=== PATIENT | female | born 1975 | race Caucasian/White ===

== ENCOUNTER → 2016-07-27 | Outpatient (CLI) | payer BC ==
[~2016-07-27] MED LIST: BCPILLS PO; BIOT1CAP8 PO; CARB0.5D28 OPB; CHOL1000 PO; IBUP-1050 PO; TAMO20TA47 PO; [UNRECOGNIZED DRUG - REMARK]
== END | disposition home or self-care (01) ==
LOC: C.PATH 08:52
PROVIDERS: ATTEND Obstetrics & Gynecology
DX: N63 Unspecified lump in breast (principal); N60.82 Other benign mammary dysplasias of left breast

== ENCOUNTER → 2016-08-03 | Outpatient (CLI) | payer BC ==
--- NOTE | 2016-08-03 11:36 | DIAGNOSTIC IMAGING REPORT ---
RIGHT BREAST LYMPHOSCINTIGRAPHY CLINICAL HISTORY: Right breast cancer. COMPARISON STUDY: Screening mammogram February 25, 2016. PROCEDURE: Right breast lymphoscintigraphy was performed. The procedure was discussed with the patient and informed consent was obtained. The procedure was performed by Dr. Mccall following a timeout. A total of 0.544 mCi of Lymphoseek was injected in 5 intradermal aliquots within the upper inner quadrant of the right breast as ordered. The patient tolerated the procedure well and no immediate complications were evident. No imaging was requested at this time. IMPRESSION: Right breast lymphoscintigraphy as described above. Electronically signed by: Alfonso Mccall M.D. 08/03/2016 11:34 AM Dictated Date/Time: 08/03/2016 11:26 AM
== END | disposition home or self-care (01) ==
LOC: C.NUCL 08:29
PROVIDERS: ATTEND Surgery
DX: C50.911 Malignant neoplasm of unspecified site of right female breast (principal)

== ENCOUNTER → 2017-01-10 | Outpatient (CLI) | payer BC ==
[~2017-01-10] MED LIST changes: -BCPILLS PO; -[UNRECOGNIZED DRUG - REMARK]
[2017-01-10 14:46] VITALS: BP 113/78; PULSE 67; TEMP 36.8; O2SAT 95
--- NOTE | 2017-01-10 17:14 | Radiation Oncology Follow-Up ---
Radiation Oncology Follow-Up Date of Visit Jan 10, 2017. Reason For Visit One-month follow-up and cancer survivorship care plan Radiation Completion Date 12/06/16 Diagnosis (1) Breast cancer Status: Acute Onset Date: 08/03/2016 Histology Subtype: microinvasive and invasive mammary carcinoma Stage: l Permanent Comment: Family history of breast cancer BRCA testing negative Self detected right breast mass Status post FNA 07/27/2016 revealing atypical ductal proliferation Status post partial mastectomy and sentinel lymph node biopsy 08/03/2016 Lesion #1 microinvasive mammary carcinoma grade 1, estrogen receptor positive, progesterone receptor positive, HER-2/lizzie negative Lesion #2 invasive mammary carcinoma of no specific type(ductal, not otherwise specified) grade 2 Estrogen receptor positive, progesterone receptor positive, HER-2/lizzie negative Stage pT1c pN0M0 Status post reexcision with negative margin 09/07/2016 Oncotype DX score of 10 Status post completion of radiation therapy 12/06/2016. Received 6640 cGy. Last Edited By: Jennyfer Hung on Dec 12, 2016 09:31 History of Present Illness Ms. Sandra is a 40-year-old female with no family history of breast cancer. She underwent a bilateral digital screening mammogram on 02/25/2016. This was compared to previous procedures dating back to 2010. There were no mammographic evidence of malignancy and a one-year screening mammogram was recommended. The patient self detected a nodule in the upper inner quadrant of the right breast. She was seen by Dr. Martines confirmed a palpable abnormality he ordered a fine-needle aspiration of the palpable abnormality. This was performed on 07/27/2016. Evaluation of the aspirated materials revealed abundant epithelial cellularity. This was felt to be consistent with an atypical ductal proliferation. The differential included an atypical proliferative lesion of fibrocystic change, DCIS and invasive carcinoma. Case: [id number]. Patient was seen by Dr. Mckeon for evaluation and discussion of diagnostic and treatment options. A targeted ultrasound was performed on 07/31/2016. This revealed a hypoechoic vascular mass with indistinct margins measuring 0.7 x 0.6 x 0.8 mm. After discussion of options the patient opted to proceed with a partial mastectomy and sentinel node biopsy. This was performed on 2016. This revealed a single benign lymph node with no evidence of metastatic carcinoma on routine stains or by immunohistochemistry to cytokeratin. The partial mastectomy specimen confirmed ductal carcinoma in situ, intermediate grade without necrosis with a focus of microinvasive carcinoma. There was no obvious gross mass seen but the deep margin showed a small focus. The appearance of this was different than that seen on the prior aspiration biopsy. However an additional inferior medial margin was taken. This showed evidence of an infiltrating ductal carcinoma grade 2 of 3 along with additional DCIS, intermediate grade without necrosis. The invasive carcinoma was present at the inked margin. DCIS margin was negative with the closest margin and inferior margin at 0.4 cm. Estrogen receptors were positive (90%, strong). Progesterone receptors were positive (80%, strong). HER-2/lizzie was negative by immunohistochemistry and confirmed negative by FISH analysis. There was no lymphovascular space invasion and no perineural invasion identified. There were 2 separate primary tumors appreciated. Case: [id number]. Patient went on to have a reexcision of the margins on 09/08/2016. The reexcision tissue showed benign breast tissue. The en face margins were negative for DCIS and for invasive carcinoma. Case: [id number]. The final AJCC pathologic staging was therefore pT1c pN0(sn-), ER positive, NE positive and HER -2/lizzie negative. Patient was seen by Dr. Thornton. Given her age Dr. Mckeon had ordered genetic testing which revealed BRCA negativity. Dr. Rui Moreno ordered Oncotype DX test that came back with a recurrent score of 10 facing her in the middle of the low risk category. Based on these findings he did not recommend systemic chemotherapy. He did recommended adjuvant hormonal therapy following the completion of her radiation. She underwent radiation therapy. This was completed 12/06/2016. She received 6640 cGy. Interim History She's been doing well over the past month. The skin irritation that occurred toward the end of treatment steadily improved. There was some peeling of the skin. The darker discoloration is steadily improving. She denies any pain. She's noted no masses. There is no change of the axilla. She has been using [id number] skin preparation to help prevent scarring. She denies any nipple pain or discharge. She has seen Dr. Mckeon and follow-up. He scheduled her for recheck mammography. She is also seen Dr. Thornton and is now on tamoxifen. She had a side effect of filling a shiver this resolved. She denies hot flashes. She had issues with itching of the skin and this has steadily improved. Allergies Coded Allergies: No Known Allergies (Verified Allergy, Unknown, ?, 09/28/08) Home Medications Scheduled Biotin (Biotin), 1 CAP PO DAILY Cholecalciferol (Vitamin D3), 1 TAB PO DAILY Tamoxifen (Nolvadex), 20 MG PO DAILY Scheduled PRN Carboxymethylcellulose Sodium (Refresh Tears), 1 DROP OPB DAILY PRN for UNDECIDED Review of Systems Gastrointestinal: Symptoms: WNL Oral: Symptoms: No Problems Respiratory: Symptoms: WNL Urinary: Symptoms: WNL Skin: Symptoms: No Problems Other Skin Symptoms: Skin tender to the touch at times (above scar) Breast: Right Upper Arm Measurement: 24.2 Right Mid Arm Measurement: 22.0 Right Wrist Measurement: 15.1 Left Upper Arm Measurement: 24.4 Left Mid Arm Measurement: 21.4 Left Wrist Measurement: 14.2 Arm Dominence: Right Physical Exam Vital Signs Date Time Temp Pulse Resp B/P (MAP) Pulse Ox O2 Delivery O2 Flow Rate FiO2 01/10/17 14:46 36.8 67 16 113/78 95 Fatigue: None General Appearance: no apparent distress Eyes: normal inspection, EOMI ENT: normal ENT inspection, hearing grossly normal Neck: no adenopathy, thyroid normal Respiratory/Chest: lungs clear, no respiratory distress, no accessory muscle use Breast: Breast examination reveals well-healed incisions of the right breast. There are no masses or tenderness and no lymphadenopathy. Mild fibrous changes in the area of the incision. She has no skin retractions. There is slight swelling of the nipple. There is very mild hyperpigmentation. There is no sign of keloid. Using the Weston score cosmesis she has a good outcome. The left breast showed no masses or tenderness and no axillary adenopathy. Cardiovascular: regular rate, rhythm, no gallop, no murmur Extremities: no pedal edema Neurologic/Psychiatric: no motor/sensory deficits, alert, normal mood/affect Skin: warm/dry Laboratory Studies Test 11/15/16 09:44 01/10/17 15:42 White Blood Count 6.40 K/uL (4.8-10.8) 8.18 K/uL (4.8-10.8) Red Blood Count 4.52 M/uL (4.2-5.4) 4.53 M/uL (4.2-5.4) Hemoglobin 14.9 g/dL (12.0-16.0) 14.3 g/dL (12.0-16.0) Hematocrit 43.6 % (37-47) 42.5 % (37-47) Mean Corpuscular Volume 96.5 fL (80-100) 93.8 fL (80-100) Mean Corpuscular Hemoglobin 33.0 pg (25-34) 31.6 pg (25-34) Mean Corpuscular Hemoglobin Concent 34.2 g/dl (32-36) 33.6 g/dl (32-36) Platelet Count 229 K/uL (130-400) 249 K/uL (130-400) Mean Platelet Volume 9.7 fL (7.4-10.4) 9.2 fL (7.4-10.4) Neutrophils (%) (Auto) 55.3 % 59.5 % Lymphocytes (%) (Auto) 27.0 % 26.7 % Monocytes (%) (Auto) 15.6 % 12.3 % Eosinophils (%) (Auto) 1.6 % 1.2 % Basophils (%) (Auto) 0.3 % 0.2 % Neutrophils # (Auto) 3.54 K/uL (1.4-6.5) 4.86 K/uL (1.4-6.5) Lymphocytes # (Auto) 1.73 K/uL (1.2-3.4) 2.18 K/uL (1.2-3.4) Monocytes # (Auto) 1.00 K/uL (0.11-0.59) 1.01 K/uL (0.11-0.59) Eosinophils # (Auto) 0.10 K/uL (0-0.5) 0.10 K/uL (0-0.5) Basophils # (Auto) 0.02 K/uL (0-0.2) 0.02 K/uL (0-0.2) RDW Standard Deviation 43.0 fL (36.4-46.3) 41.4 fL (36.4-46.3) RDW Coefficient of Variation 12.2 % (11.5-14.5) 12.2 % (11.5-14.5) Immature Granulocyte % (Auto) 0.2 % 0.1 % Immature Granulocyte # (Auto) 0.01 K/uL (0.00-0.02) 0.01 K/uL (0.00-0.02) Sodium Level 141 mmol/L (136-145) 142 mmol/L (136-145) Potassium Level 3.9 mmol/L (3.5-5.1) 3.7 mmol/L (3.5-5.1) Chloride Level 107 mmol/L (98-107) 108 mmol/L (98-107) Carbon Dioxide Level 26 mmol/L (21-32) 27 mmol/L (21-32) Anion Gap 8.0 mmol/L (3-11) 7.0 mmol/L (3-11) Blood Urea Nitrogen 15 mg/dl (7-18) 16 mg/dl (7-18) Creatinine 0.93 mg/dl (0.60-1.20) 0.91 mg/dl (0.60-1.20) Estimated GFR () 87.9 90.2 Estimated GFR (Non- 75.8 77.8 BUN/Creatinine Ratio 15.9 (10-20) 17.9 (10-20) Random Glucose 78 mg/dl (70-99) 94 mg/dl (70-99) Calcium Level 9.2 mg/dl (8.5-10.1) 9.0 mg/dl (8.5-10.1) Total Bilirubin 0.9 mg/dl (0.2-1) 0.4 mg/dl (0.2-1) Aspartate Amino Transferase (AST) 14 U/L (15-37) 15 U/L (15-37) Alanine Aminotransferase (ALT) 27 U/L (12-78) 27 U/L (12-78) Alkaline Phosphatase 57 U/L (45-117) 54 U/L (45-117) Lactate Dehydrogenase 129 U/L (84-246) 139 U/L (84-246) Total Protein 7.0 gm/dl (6.4-8.2) 6.9 gm/dl (6.4-8.2) Albumin 3.9 gm/dl (3.4-5.0) 3.9 gm/dl (3.4-5.0) Globulin 3.1 gm/dl (2.5-4.0) 3.0 gm/dl (2.5-4.0) Albumin/Globulin Ratio 1.3 (0.9-2) 1.3 (0.9-2) Assessment & Plan Plan: Continue with scheduled mammography. Continue follow-up with Dr. Mckeon , Dr. Thornton, and her primary care physician. I discussed general solid she to the area of fibrous change in the region of the incision. She'll continue the tamoxifen. Today we completed a cancer survivorship care plan. A copy the document was given to the patient. We asked her to return to our office in 6 months. She may call if she has a questions or concerns in the interim. Total Time In Follow-Up I spent 20 minutes speaking to the patient and performing examination. I spent 20 minutes reviewing information, preparing the survivorship document, and completing this note. Copy To Long Mckeon M.D.; Joe Thornton MD; Janak Lira M.D.; Gayle Ramos M.D. Problem Qualifiers (1) Breast cancer: Breast location: upper inner quadrant of breast Estrogen receptor status: positive Patient sex: female Laterality: right Qualified Codes: C50.211 - Malignant neoplasm of upper-inner quadrant of right female breast; Z17.0 - Estrogen receptor positive status [ER+]
== END | disposition home or self-care (01) ==
LOC: C.ONC 14:40
PROVIDERS: ATTEND Physician Assistant Medical
DX: Z08 Encounter for follow-up examination after completed treatment for malignant neoplasm (principal); Z92.3 Personal history of irradiation; Z85.3 Personal history of malignant neoplasm of breast

== ENCOUNTER → 2017-03-13 | Outpatient (CLI) | payer BC ==
[~2017-03-13] MED LIST changes: -IBUP-1050 PO
--- NOTE | 2017-03-13 13:03 | MAMMOGRAPHY REPORT ---
BILATERAL DIGITAL DIAGNOSTIC MAMMOGRAM TOMOSYNTHESIS WITH CAD: 03/13/2017 CLINICAL HISTORY: 41-year-old woman with a personal history of right breast cancer status post breast conservation treatment. After negative mammogram last February, she felt a lump in her right breas t in June 2016. This was biopsied with fine-needle aspiration based on palpation and yielded atyp ical cells. Surgical excision yielded microinvasive mammary carcinoma and DCIS. Additional tissue y ielded negative margins. Patient presents for first follow-up after treatment. TECHNIQUE: Bilateral breast tomosynthesis in addition to standard 2D mammography was performed. Spot magnification right CC and ML views were also obtained. Current study was also evaluated with a Telepo Aided Detection (CAD) system. COMPARISON: Comparison is made to exams dated: 02/25/2016 mammogram, 02/17/2015 mammogram, 10/01/2012 ult rasound, 10/01/2012 mammogram, and 04/25/2011 ultrasound - [facility]. BREAST COMPOSITION: The tissue of both breasts is extremely dense, which lowers the sensitivity of m ammography. FINDINGS: A linear scar marker overlies the anterior right breast. There is a single surgical clip a nd expected architectural distortion deep to the scar marker, denoting the surgical bed. There are s cattered stable round and punctate microcalcifications in the left breast, and a few identified withi n the right breast. No suspicious grouping or cluster is seen bilaterally. No unexpected architectu ral distortion, obvious new mass or asymmetry. IMPRESSION: ACR-BI-RADS CATEGORY 3: PROBABLY BENIGN There are expected post treatment changes in the right breast, without definite mammographic evidence of malignancy bilaterally. Recommend another close follow-up diagnostic mammogram and possible ultr asound of the right breast in 6 months to ensure stability after treatment. Recommend routine mammog ysabel of the left breast at 1 year. 2. Given that the patient's breast cancer was mammographically occult, would also recommend addition al surveillance with breast MRI. These results and recommendations were discussed with the patient at the time of the exam. She tenta tively scheduled her breast MRI and follow-up evaluation of the right breast prior to leaving the [facility]. Approximately 10% of breast cancers are not detected with mammography. A negative mammographic report should not delay biopsy if a clinically suggestive mass is present. Starla Best M.D. ay/:03/13/2017 12:55:00 Decision Unit Rn: Jolynn ORELLANA)([place]), [facility] letter sent: Follow Up Recommended 3 BI-RADS Code: ACR-BI-RADS Category 3: Probably Benign
== END | disposition home or self-care (01) ==
LOC: C.MAMM 09:05
PROVIDERS: ATTEND Surgery
DX: Z85.3 Personal history of malignant neoplasm of breast (principal); Z08 Encounter for follow-up examination after completed treatment for malignant neoplasm

== ENCOUNTER → 2017-03-20 | Outpatient (CLI) | payer BC | END | disposition home or self-care (01) | LOC: C.PAPS 14:07 | PROVIDERS: ATTEND Obstetrics & Gynecology | DX: Z01.419 Encounter for gynecological examination (general) (routine) without abnormal findings (principal) ==

== ENCOUNTER → 2017-03-30 | Outpatient (CLI) | payer BC ==
[~2017-03-30] MED LIST changes: +GADAVIST IV PRN
--- NOTE | 2017-04-02 08:01 | MAMMOGRAPHY REPORT ---
BREAST MRI OF BOTH BREASTS : 03/30/2017 CLINICAL HISTORY: Screening breast MRI. History of right breast cancer status post lumpectomy. COMPARISON: Comparison is made to exams dated: 03/13/2017 mammogram, 02/25/2016 mammogram, 02/17/2015 ma mmogram, 10/01/2012 ultrasound, 10/01/2012 mammogram, and 04/25/2011 ultrasound - [facility] nt. Technique: The patient was placed prone in a dedicated breast imaging coil. Precontrast axial T1-rey ghted, axial T2-weighted fat saturation, and axial T1-weighted fat saturation images were obtained. After the administration of 5.5 mL of Gadavist IV contrast, sequential T1-weighted fat saturation fidel ges were obtained. Subtraction images were obtained of the dynamic contrast enhanced sequences, and 3-D reformations were performed. The Sosh software was used for kinetic analysis. Findings: Right breast: There is mild background parenchymal enhancement. There are expected post surgical ania nges in the right medial breast from prior lumpectomy. There are no suspicious enhancing masses or a reas of abnormal non-mass enhancement within the right breast. Left breast: There is mild background parenchymal enhancement. There is an oval circumscribed enhanc ing 7 mm mass within the left 2:00 breast posteriorly, which demonstrates corresponding T2 hyperinten sity and has two central nonenhancing portions as well as predominantly persistent kinetics (series 5 01 image 50, series 6 image 23). Recommend second look ultrasound for further evaluation; this may r epresent a fibroadenoma or possibly a cyst cluster. Additionally, there is a small 3 mm focus of enh ancement in the left 12:00 posterior breast, which demonstrates a predominantly persistent kinetic pa ttern and may represent normal background parenchymal enhancement although second look ultrasound is recommended (series 501 image 47 and series 6 image 31). The remainder of the left breast demonstrat es no suspicious enhancing masses or areas of abnormal non-mass enhancement. There is no evidence of axillary adenopathy. The chest wall structures are negative. Extramammary s oft tissues are unremarkable. IMPRESSION: ACR BI-RADS CATEGORY 0: INCOMPLETE EVALUATION: NEED ADDITIONAL IMAGING EVALUATION 1. Circumscribed enhancing 7 mm mass in the left 2:00 breast posteriorly, which may represent a fibr oadenoma or cyst cluster although second look ultrasound is recommended for further evaluation. If a corresponding suspicious abnormality is seen on ultrasound, then ultrasound-guided biopsy could be p erformed at that time (45 minute time slot). 2. Small 3 mm enhancing focus in the left 12:00 posterior breast, which may represent normal backgro und parenchymal enhancement although second look ultrasound is recommended. 3. Expected postsurgical changes in the right breast from prior lumpectomy, without MRI evidence of malignancy. Valeria Davis M.D. ah/:03/31/2017 16:45:05 Commercial Development Manager: [employer], [facility] letter sent: Addl Imaging 0 BI-RADS Code: ACR BI-RADS Category 0: Incomplete Evaluation: Need Additional Imaging Evaluation
== END | disposition home or self-care (01) ==
LOC: C.MRI 14:04
PROVIDERS: ATTEND Surgery
DX: C50.211 Malignant neoplasm of upper-inner quadrant of right female breast (principal); N63.0 Unspecified lump in unspecified breast; R92.8 Other abnormal and inconclusive findings on diagnostic imaging of breast; Z98.890 Other specified postprocedural states

== ENCOUNTER → 2017-04-11 | Outpatient (CLI) | payer BC ==
[~2017-04-11] MED LIST changes: -GADAVIST IV PRN
--- NOTE | 2017-04-11 08:47 | Discharge Instructions ---
Discharge Instructions Procedure Procedure Date: Apr 11, 2017. Reason for visit: Left Mass 2ND Look Us--Possible Bx. Discharge Discharge Date: Apr 11, 2017. Discharge Diagnosis: post left breast ultrasound guided core biopsy Instructions Activity Recommendations: Additional Limitations (see below) Return to School/Work: no limitations Recommended Home Diet: No Limitations Provider Instructions: ACTIVITY RECOMMENDATIONS: * No lifting, pushing, pulling or exercising the affected side for three days. RETURN TO SCHOOL/WORK: * You may return to work/school after the procedure, but do not perform any strenuous activities for 24 to 48 hours. MEDICATIONS: * Tylenol (two 325 mg) every four to six hours if needed for mild pain (if not allergic to Tylenol). DIET: * Resume previous diet. SPECIAL CARE INSTRUCTIONS: * Keep biopsy site dry for 24 hours. May shower after 24 hours, but do not soak (bathe) incision. * May remove Tegaderm (plastic patch) tomorrow AFTER showering. * Leave the steri-strips on for one week. Allow the steri-strips to fall off by themselves. If not off after one week, you may remove them. You may place a Bandaid crosswise over the strips, if desired. * Apply ice 10 minutes on and 10 minutes off as needed. * Wear a bra at bedtime to sleep more comfortably for 2-3 days. * Your referring physician should have the results after approximately 5 to 7 business days. * Call for unusual bleeding, fever, drainage, etc or if you have any questions call [phone] during normal business hours or after hours call Dr Best, . FOLLOW UP VISIT: Follow-up with Referring Physician as scheduled. Allergies Coded Allergies: No Known Allergies (Verified Allergy, Unknown, ?, 09/28/08) Nelly See Recommendations: Call your doctor if: * Temperature above 101 degrees * Pain not relieved by pain medicine ordered * There is increased drainage or redness from any incision * You have any unanswered questions or concerns. Your Doctors Instructions noted above were prepared by provider Starla Best. Patient Signature Section: Patient Instructions Signature Page Nelli Sandra Patient (or Guardian) Signature/Date: I have read and understand the instructions given to me by my caregivers. Caregiver/RN/Doctor Signature/Date: The above-named patient and/or guardian has received patient instructions on this date. + Original Patient Signature Page (only) stays with chart. Please make copy for patient.
--- NOTE | 2017-04-12 07:44 | MAMMOGRAPHY REPORT ---
ULTRASOUND GUIDED BIOPSY LEFT BREAST: 04/11/2017 CLINICAL HISTORY: 41-year-old woman presented for second look ultrasound to assess for a circumscribe d enhancing 7 mm mass in the upper outer quadrant of the left breast posteriorly seen on recent breas t MRI. On second look ultrasound, a 6.6 mm circumscribed parallel solid mass was identified in the 1 :00 left breast, 4 cm from the nipple thought to be the correlate for the MRI finding. She presents for ultrasound-guided biopsy of this mass. COMPARISON: Comparison is made to exams dated: 04/11/2017 ultrasound, 03/30/2017 breast MRI, 7 mammogram, 02/25/2016 mammogram, 02/17/2015 mammogram, and 10/01/2012 ultrasound - [facility]. PATIENT CONSENT: The procedure, risks and benefits were discussed with the patient and informed conse nt was obtained both verbally and in writing. Specific risks to this procedure include: bleeding, in fection, puncture of adjacent structure, nontarget biopsy, sampling error, pain, metal allergy and me dication reaction. PROCEDURE DESCRIPTION: A time out was performed and the left breast was agreed as the site of biopsy. The skin was prepped and draped in the usual sterile fashion. The solid 6.6 mm mass in the 1:00 left breast was chosen as the target for biopsy. Subcutaneous and intraparenchymal 1% buffered lidocaine, with and without epinephrine, was administered as local anesthesia. A skin incision was made. Throu gh the incision, 4 samples were taken with a 14 gauge Achieve biopsy device. A ribbon shaped metallic marker was placed at the biopsy site. Hemostasis was achieved after manual compression. The patient tolerated the procedure well and there was no immediate complication. The samples were sent to the p athology department in an appropriately labeled container. Postprocedure left CC and ML tomosynthesis images were obtained area dating a new ribbon-shaped biops y marker clip and no significant hematoma is seen in the 1:00 posterior left breast, at the site of t he biopsied hypoechoic solid mass seen on ultrasound, thought to correlate with an enhancing mass on MRI. IMPRESSION: ULTRASOUND GUIDED BIOPSY 1. Status post ultrasound guided core biopsy of an indeterminate solid 6.6 mm mass in the 1:00 poste rior left breast, with ribbon-shaped biopsy marker clip placed at the site. 2. Pending benign pathology results, a follow-up breast MRI is recommended in 6 months to ensure MRI ultrasound correlation of the biopsied mass, as well as to reassess a 3 mm focus of enhancement in t he 12:00 posterior left breast which was not identified with second look ultrasound. The patient will receive notification of the biopsy results from her referring physician. Starla Best M.D. ay/:04/11/2017 10:57:16 Switchboard Clerk: Calli ORELLANA)([place]), [facility]
--- NOTE | 2017-04-12 07:48 | MAMMOGRAPHY REPORT ---
ULTRASOUND OF BOTH BREASTS: 04/11/2017 CLINICAL HISTORY: 41-year-old woman with a personal history of right breast cancer status post breast conservation treatment presents for a second look ultrasound of the left breast for a recently obser alejandra 7 mm enhancing mass in the left breast approximate 2:00 posterior aspect which is identified on b reast MRI. Also assess for a 3 mm enhancing focus in the 12:00 posterior left breast on MRI. COMPARISON: Comparison is made to exams dated: 03/30/2017 breast MRI, 03/13/2017 mammogram, 02/25/2016 m ammogram, 02/17/2015 mammogram, 10/01/2012 ultrasound, and 10/01/2012 mammogram - [facility]ter. FINDINGS: Targeted ultrasound was performed in the upper outer quadrant of the left breast to assess for the 7 mm enhancing circumscribed mass seen on recent MRI. In the 1:00 axis, 4 cm from the nippl e, there is an oval parallel circumscribed isoechoic solid mass measuring 5.8 x 2.9 x 6.6 mm. This l ikely corresponds with the MRI finding and is indeterminate given the solid nature. Although this co uld represent a benign fibroadenoma, definitive characterization with tissue sampling is recommended. Additional scanning more medially in the left breast with particular attention to the 12:00 posteri or aspect no other discrete solid or cystic mass was identified. No sonographic correlate for the sm aller 3 mm enhancing focus seen on recent breast MRI. IMPRESSION: ACR BI-RADS CATEGORY 4: SUSPICIOUS - FOLLOW-UP RECOMMENDED 1. Ultrasound guided core biopsy is recommended for an indeterminate solid circumscribed parallel 6. 6 mm mass in the 1:00 left breast, 4 cm from the nipple, thought to correlate with an enhancing mass seen on recent MRI. This was performed during the same appointment and please refer to a separate bi opsy report for full detail. 2. No sonographic correlate for the smaller 3 mm enhancing focus seen in the 12:00 posterior left br east on MRI. Therefore, pending benign pathology results from the biopsy in the 1:00 axis, would rec ommend a short interval follow-up bilateral breast MRI in 6 months to ensure stability as well as MRI ultrasound correlation for the biopsied mass. These results and recommendations were discussed with the patient at the time of the exam. Starla Best M.D. ay/:04/11/2017 08:53:19 Floor Plan Adjuster: Dr. Starla Best, [facility] letter sent: Abnormal 4/5 BI-RADS Code: ACR BI-RADS Category 4: Suspicious
--- NOTE | 2017-04-12 07:49 | MAMMOGRAPHY REPORT ---
UNILATERAL LEFT DIGITAL DIAGNOSTIC MAMMOGRAM TOMOSYNTHESIS: 04/11/2017 CLINICAL HISTORY: Status post ultrasound guided core biopsy of an indeterminate solid 6.6 mm mass in the 1:00 left breast, thought to correlate with an enhancing mass seen on recent breast MRI. Please refer to the report from left breast ultrasound guided core biopsy performed at the same time for full detail. IMPRESSION: POST PROCEDURE IMAGING FOR MARKER PLACEMENT Please refer to the report from left breast ultrasound guided core biopsy performed at the same time for full detail. Approximately 10% of breast cancers are not detected with mammography. A negative mammographic report should not delay biopsy if a clinically suggestive mass is present. Starla Best M.D. ay/:04/11/2017 08:57:54 Inspector Brake Lining: Calli ZUÑIGA(Viktoria)([place]), [facility] BI-RADS Code: Post Procedure Imaging For Marker Placement
== END | disposition home or self-care (01) ==
LOC: C.MAMM 07:58
PROVIDERS: ATTEND Surgery
DX: D24.2 Benign neoplasm of left breast (principal)

== ENCOUNTER → 2017-07-12 | Outpatient (CLI) | payer OTHER ==
[~2017-07-12] MED LIST changes: +GABA1CAP PO; +SERT50TA PO; -TAMO20TA47 PO; +TAMO20TA9 PO
[2017-07-12 13:41] VITALS: BP 115/74; PULSE 78; TEMP 36.9; O2SAT 97
--- NOTE | 2017-07-12 17:09 | Radiation Oncology Follow-Up ---
Radiation Oncology Follow-Up Date of Visit Jul 12, 2017. Reason For Visit 6 month follow-up Radiation Completion Date 12/06/16 Diagnosis (1) Breast cancer Status: Acute Onset Date: 08/03/2016 Histology Subtype: microinvasive and invasive mammary carcinoma Stage: l Permanent Comment: Family history of breast cancer BRCA testing negative Self detected right breast mass Status post FNA 07/27/2016 revealing atypical ductal proliferation Status post partial mastectomy and sentinel lymph node biopsy 08/03/2016 Lesion #1 microinvasive mammary carcinoma grade 1, estrogen receptor positive, progesterone receptor positive, HER-2/lizzie negative Lesion #2 invasive mammary carcinoma of no specific type(ductal, not otherwise specified) grade 2 Estrogen receptor positive, progesterone receptor positive, HER-2/lizzie negative Stage pT1c pN0M0 Status post reexcision with negative margin 09/07/2016 Oncotype DX score of 10 Status post completion of radiation therapy 12/06/2016. Received 6640 cGy. Last Edited By: Jennyfer Hung on Dec 12, 2016 09:31 History of Present Illness Ms. Sandra has no family history of breast cancer. She underwent a bilateral digital screening mammogram on 02/25/2016. This was compared to previous procedures dating back to 2010. There were no mammographic evidence of malignancy and a one-year screening mammogram was recommended. The patient self detected a nodule in the upper inner quadrant of the right breast. She was seen by Dr. Martines confirmed a palpable abnormality he ordered a fine- needle aspiration of the palpable abnormality. This was performed on 2016. Evaluation of the aspirated materials revealed abundant epithelial cellularity. This was felt to be consistent with an atypical ductal proliferation. The differential included an atypical proliferative lesion of fibrocystic change, DCIS and invasive carcinoma. Case: [id number]. Patient was seen by Dr. Mckeon for evaluation and discussion of diagnostic and treatment options. A targeted ultrasound was performed on 07/31/2016. This revealed a hypoechoic vascular mass with indistinct margins measuring 0.7 x 0.6 x 0.8 mm. After discussion of options the patient opted to proceed with a partial mastectomy and sentinel node biopsy. This was performed on 2016. This revealed a single benign lymph node with no evidence of metastatic carcinoma on routine stains or by immunohistochemistry to cytokeratin. The partial mastectomy specimen confirmed ductal carcinoma in situ, intermediate grade without necrosis with a focus of microinvasive carcinoma. There was no obvious gross mass seen but the deep margin showed a small focus. The appearance of this was different than that seen on the prior aspiration biopsy. However an additional inferior medial margin was taken. This showed evidence of an infiltrating ductal carcinoma grade 2 of 3 along with additional DCIS, intermediate grade without necrosis. The invasive carcinoma was present at the inked margin. DCIS margin was negative with the closest margin and inferior margin at 0.4 cm. Estrogen receptors were positive (90%, strong). Progesterone receptors were positive (80%, strong). HER-2/lizzie was negative by immunohistochemistry and confirmed negative by FISH analysis. There was no lymphovascular space invasion and no perineural invasion identified. There were 2 separate primary tumors appreciated. Case: [id number]. Patient went on to have a reexcision of the margins on 09/08/2016. The reexcision tissue showed benign breast tissue. The en face margins were negative for DCIS and for invasive carcinoma. Case: [id number]. The final AJCC pathologic staging was therefore pT1c pN0(sn-), ER positive, CT positive and HER -2/lizzie negative. Patient was seen by Dr. Thornton. Given her age Dr. Mckeon had ordered genetic testing which revealed BRCA negativity. Dr. Rui Moreno ordered Oncotype DX test that came back with a recurrent score of 10 facing her in the middle of the low risk category. Based on these findings he did not recommend systemic chemotherapy. He did recommended adjuvant hormonal therapy following the completion of her radiation. She underwent radiation therapy. This was completed 12/06/2016. She received 6640 cGy. Interim History She has noted no masses of the breast. She does have some mild tenderness in the area of the axilla. By doing stretching exercises this is relieved. She saw Dr. Mckeon in follow-up. He palpated an abnormality in the left breast. He sent her for an FNA in that was performed 04/11/2017. This was a fibroadenoma. Pathology specimen [id number]. She is up-to-date on mammography. Mammogram had been performed of the left breast on April 11 at the time of her biopsy. She had MRIs of the breasts 03/30/2017. This did show a circumscribed enhancing 7 mm mass in the left 2:00 breast posteriorly, which may represent a fibroadenoma or cyst cluster although second look ultrasound is recommended for further evaluation. If a corresponding suspicious abnormality is seen on ultrasound and ultrasound-guided biopsy can be performed. Small 3 mm enhancing focus in the left breast 12 o'clock position breast, which may represent normal background parenchymal enhancement although second look ultrasound is recommended. Expected postsurgical changes in the right breast without evidence of MRI malignancy. She had bilateral mammogram 03/13/2017 showed the expected posttreatment changes recommend a recheck of the right breast in 6 months. This recommended a surveillance MRI. With these findings and a palpable change she underwent the biopsy which showed a fibroadenoma. Allergies Coded Allergies: No Known Allergies (Verified Allergy, Unknown, ?, 09/28/08) Home Medications Scheduled Biotin (Biotin), 1 CAP PO DAILY Cholecalciferol (Vitamin D3), 1 TAB PO DAILY Gabapentin (Neurontin), 1 CAP PO BID Sertraline Hcl (Zoloft), 75 MG PO DAILY Tamoxifen (Nolvadex), 20 MG PO DAILY Scheduled PRN Carboxymethylcellulose Sodium (Refresh Tears), 1 DROP OPB DAILY PRN for UNDECIDED Review of Systems Gastrointestinal: Symptoms: WNL Oral: Symptoms: No Problems Respiratory: Symptoms: WNL Urinary: Symptoms: WNL Skin: Symptoms: No Problems Breast: Right Upper Arm Measurement: 25.2 Right Mid Arm Measurement: 23.0 Right Wrist Measurement: 15.3 Left Upper Arm Measurement: 26.0 Left Mid Arm Measurement: 22.7 Left Wrist Measurement: 14.4 Arm Dominence: Right Physical Exam Vital Signs Date Time Temp Pulse Resp B/P (MAP) Pulse Ox O2 Delivery O2 Flow Rate FiO2 07/12/17 13:41 36.9 78 16 115/74 97 Fatigue: None General Appearance: no apparent distress Eyes: normal inspection, EOMI ENT: normal ENT inspection, hearing grossly normal Neck: no adenopathy, thyroid normal Respiratory/Chest: lungs clear, no respiratory distress, no accessory muscle use Breast: Breast examination reveals well-healed incisions of the right breast. There mild fibrous changes above the incision line. There no distinct palpable masses. There is no tenderness no axillary adenopathy. Using the [place] score cosmesis she has a in excellent outcome. Left breast shows a palpable firmness in the upper outer quadrant of the left breast. The area of the biopsied fibroadenoma. There is no axillary adenopathy. Cardiovascular: regular rate, rhythm, no gallop, no murmur Extremities: no pedal edema Neurologic/Psychiatric: no motor/sensory deficits, alert, normal mood/affect Skin: warm/dry Pain Management Patient Reports Pain: No Pain Management Plan She does not require pain management. Laboratory Laboratory Results: not applicable Pathology Pathology Results: were reviewed Pathology Comments Reviewed in the interim history Imaging Imaging Studies: were reviewed Imaging Comments Reviewed in the interim history Assessment & Plan Plan: The patient had questions today in regards to removal of her radiation positioning tattoos. I discussed with her that in the event of any recurrent tumor or cancer of the left breast it would be in her best interest to keep her tattoos. This would to prevent overlapping of radiation. She was most concerned about 1 tattoo that is in the upper outer quadrant of the right breast. We discussed that it would be less of a concern to have this tattoo removed. Our office will be in contact with our plastic surgeon to discuss tattoo removal. We asked if there office could look into a program that is available for removal of tattoos from cancer patients at no cost. Follow-up mammography and MRI have been scheduled and orders were written. She'll continue follow-up with medical oncology and her primary care physician. We asked her to return to our office in 1 year. She is also seen today by Dr. Ramos discussed the tattoo removal. Assessment & Plan (Attending) ADDENDUM: I agree with note created by Jennyfer Hung PA-C. I reviewed the patient's chart and information with her. I have examined and evaluated the patient. I reviewed relevant clinical information and answered the patient's and /or family's questions. EDI ARCHITECT Total Time In Follow-Up I spent 25 minutes speaking to the patient performing examination. I spent 15 minutes reviewing information and completing this note. AK Total Time (Attending) In Follow-Up I spent 15 minutes examining and counseling the patient. EDI ARCHITECT Copy To Long Mckeon M.D.; Joe Thornton MD; Gayle Ramos M.D. Problem Qualifiers (1) Breast cancer: Breast location: upper inner quadrant of breast Estrogen receptor status: positive Patient sex: female Laterality: right Qualified Codes: C50.211 - Malignant neoplasm of upper-inner quadrant of right female breast; Z17.0 - Estrogen receptor positive status [ER+]
== END | disposition home or self-care (01) ==
LOC: C.ONC 13:35
PROVIDERS: ATTEND Physician Assistant Medical
DX: Z08 Encounter for follow-up examination after completed treatment for malignant neoplasm (principal); Z92.3 Personal history of irradiation; Z85.3 Personal history of malignant neoplasm of breast

== ENCOUNTER → 2017-09-13 | Outpatient (CLI) | payer OTHER ==
[~2017-09-13] MED LIST changes: +GABA100C13 PO; -GABA1CAP PO
--- NOTE | 2017-09-13 15:08 | MAMMOGRAPHY REPORT ---
UNILATERAL RIGHT DIGITAL DIAGNOSTIC MAMMOGRAM TOMOSYNTHESIS WITH CAD: 09/13/2017 CLINICAL HISTORY: History of right breast cancer status post lumpectomy. The patient reports no new lumps or other complaints. TECHNIQUE: Breast tomosynthesis in addition to standard 2D mammography was performed. Current study was also evaluated with a Computer Aided Detection (CAD) system. Right CC and MLO 2D and tomosynthes is images and spot magnification right CC and ML views were obtained. COMPARISON: Comparison is made to exams dated: 03/13/2017 mammogram, 02/25/2016 mammogram, 02/17/2015 ma mmogram, and 10/01/2012 mammogram - [facility]. BREAST COMPOSITION: The tissue of the right breast is extremely dense, which lowers the sensitivity of mammography. FINDINGS: There are stable post surgical changes in the right medial breast at approximately 3:00 fro m prior lumpectomy, including stable architectural distortion and a surgical clip at the lumpectomy b ed. A few scattered punctate benign-appearing calcifications are again noted within the right breast . There are no suspicious masses, calcifications, or areas of nonsurgical architectural distortion n oted within the right breast. There has been no significant interval change compared to the prior ex am. IMPRESSION: ACR-BI-RADS CATEGORY 3: PROBABLY BENIGN 1. Stable posttreatment changes in the right breast, without mammographic evidence of malignancy in the right breast. Recommend bilateral diagnostic tomosynthesis mammograms in 6 months, to reevaluate right breast posttreatment changes and for routine mammography of the left breast. 2. Additionally, the patient is due for short interval follow-up bilateral breast MRI in September. She reports she is already scheduled for the follow-up MRI. The patient has been verbally notified of the results. Approximately 10% of breast cancers are not detected with mammography. A negative mammographic report should not delay biopsy if a clinically suggestive mass is present. aVleria Davis M.D. ah/:09/13/2017 09:36:03 Rope Making Machine Operator: Calli ORELLANA)(M), [facility] letter sent: Personal History 3 BI-RADS Code: ACR-BI-RADS Category 3: Probably Benign
== END | disposition home or self-care (01) ==
LOC: C.MAMM 09:06
PROVIDERS: ATTEND Physician Assistant Medical
DX: Z85.3 Personal history of malignant neoplasm of breast (principal)

== ENCOUNTER → 2017-09-28 | Outpatient (CLI) | payer OTHER ==
[~2017-09-28] MED LIST changes: +GADAVIST IV PRN
--- NOTE | 2017-10-02 07:41 | MAMMOGRAPHY REPORT ---
BREAST MRI OF BOTH BREASTS : 09/28/2017 CLINICAL HISTORY: History right breast cancer status post lumpectomy. A breast MRI performed March 2017 showed an enhancing mass within the left upper outer posterior breast; a correlate was found on ultrasound which was biopsied and yielded a benign fibroadenoma. The patient presents for short int erval follow-up. COMPARISON: Comparison is made to exams dated: 04/11/2017 mammogram, 04/11/2017 ultrasound, 04/11/20 17 ultrasound biopsy, 03/30/2017 breast MRI, 03/13/2017 mammogram, and 02/25/2016 mammogram - [facility]. Technique: The patient was placed prone in a dedicated breast imaging coil. Precontrast axial T1-rey ghted, axial T2-weighted fat saturation, and axial T1-weighted fat saturation images were obtained. After the administration of 5.5 mL of Gadavist IV contrast, sequential T1-weighted fat saturation fidel ges were obtained. Subtraction images were obtained of the dynamic contrast enhanced sequences, and 3-D reformations were performed. The [employer] software was used for kinetic analysis. Findings: Right breast: There is minimal background parenchymal enhancement. There are stable postsurgical ania nges in the right medial breast from prior lumpectomy. There are no suspicious enhancing masses or a reas of abnormal non-mass enhancement within the right breast. Left breast: There is minimal background parenchymal enhancement. Oval circumscribed enhancing 6 mm mass within the left upper outer posterior breast is stable compared to the March 2017 exam (series [id number] image 48). Clip artifact is seen adjacent to the mass. This was previously biopsied March 2017 and yielded a benign fibroadenoma. Given the stability and benign pathology on biopsy, the mass is considered benign. Small benign-appearing 3 mm focus of enhancement in the left 12:00 posterior breast is also stable compared to the March 2017 exam and demonstrates a benign type persistent kin etic pattern (series [id number] image 49). Given the benign morphology and given the stability, the focus is considered benign. The remainder of the left breast is negative, without suspicious masses or no n-mass enhancement evident. There is no evidence of axillary adenopathy. The chest wall structures are negative. Visualized por tions of the extramammary soft tissues are grossly unremarkable. IMPRESSION: ACR BI-RADS CATEGORY 2: BENIGN 1. Circumscribed 6 mm mass in the left upper outer posterior breast is stable compared to the 2016 exam and was previously biopsied and yielded a fibroadenoma. The mass is considered benign gi luiza the stability and benign pathology. 2. Enhancing 3 mm focus in the left 12:00 breast is also stable and is considered benign. 3. No MRI evidence of malignancy in either breast. Recommend continuation with annual bilateral screening breast MRI given the personal history of breas t cancer and dense breast parenchyma mammographically, which could be performed in 1 year. The marry nt is also due for follow-up diagnostic mammograms in February. Valeria Davis M.D. ah/:09/28/2017 16:06:22 Receiver Stocker: leather drier, [facility] letter sent: Normal 1/2 BI-RADS Code: ACR BI-RADS Category 2: Benign
== END | disposition home or self-care (01) ==
LOC: C.MRI 09:36
PROVIDERS: ATTEND Physician Assistant Medical
DX: C50.211 Malignant neoplasm of upper-inner quadrant of right female breast (principal); D24.2 Benign neoplasm of left breast